=== PATIENT | female | born 1995 | race Two or more races ===

== ENCOUNTER 2020-04-30 10:19 | Emergency (ER) | payer MEDICAID ==
[~2020-04-30] VITALS: Ht 170.2 cm; Wt 77.1 kg
[2020-04-30 10:30] VITALS: BP 132/81
--- NOTE | 2020-04-30 10:30 | Emergency Room Report ---
History of Present Illness General Chief Complaint: Palpitations Source: Patient Present Illness HPI Patient is a 25-year-old female who presented after increased palpitations. She reports having rapid heartbeat. Had been vomiting yesterday. Denies any bilious or bloody vomit. Had 2 episodes of vomiting yesterday. Reports having normal menses which finished approximately 1 week ago. Reports having some increased vaginal discharge but denies any recent intercourse. States that she had previous cysts but denies any abdominal pain. Reports having some increased sore throat with some burning sensation to her upper chest. COVID-19 Screening Contact w/high risk pt: No Experienced COVID-19 symptoms?: No COVID-19 Testing performed MUD WORKER: No Patient History Past Medical History: see triage record Last Menstrual Period: 04/21/20 Now: No Reviewed Nursing Documentation: PMH: Agreed; PSxH: Agreed Nursing Documentation-PMH Past Medical History: No Stated History Review of Systems All Other Systems: negative except mentioned in HPI Physical Exam Vital Signs Date Time Temp Pulse Resp B/P (MAP) Pulse Ox O2 Delivery O2 Flow Rate FiO2 04/30/20 10:23 98.6 78 18 132/81 (98) 94 Room Air Sp02 EP Interpretation: reviewed, normal General Appearance: normal inspection, well appearing, no apparent distress, alert, GCS 15 Head: atraumatic ENT: normal ENT inspection, hearing grossly normal, normal voice Neck: normal inspection, full range of motion, supple, no bony tend Respiratory: normal inspection, lungs clear, normal breath sounds, no respiratory distress, no retraction, no wheezing Cardiovascular #1: regular rate, rhythm, no edema Gastrointestinal: normal inspection, normal bowel sounds, non tender, soft, no guarding, no hernia Genitourinary: no CVA tenderness Musculoskeletal: normal inspection, back normal, normal range of motion Neurologic: alert, responsive, speech normal, normal inspection Psychiatric: normal inspection, judgement/insight normal, mood/affect normal Medical Decision Making Diagnostic Impression: Primary Impression: Palpitation Additional Impression: Urinary tract infection ER Course Patient presented for palpitations. Differential diagnosis include was not limited to dehydration, gastritis, myocardial infarction, arrhythmia among others. Patient has a benign exam and does not appear to require any imaging or laboratory testing at this time. Patient was noted to have a normal heart rate.EKG interpreted by me showed normal sinus rhythm with a rate of [address] or T wave change. Patient does not have any known risk factor for myocardial ischemia. Recent vomiting suggest that she had some volume depletion. Patient was noted to have some evidence of urinary infection. test was negative. No risk factor for pulmonary embolism. Patient was noted to have normal heart rate and orthostatic vital signs were normal. Patient was advised to follow-up with primary care physician for cardiology referral and possible Holter testing. Patient appears to be stable for discharge. The patient is advised to follow up with primary care doctor in 1- 2 days. Patient is advised to return if any worsening condition or if any changes in status that are concerning. This report is dictated with [employer] apprentice lineman third step software which may occasionally lead to discrepancies related to use of this software. Labs Test 04/30/20 10:31 Urine Color Pale yellow Urine Appearance Slightly cloudy Urine pH 6 (4.5-8.0) Urine Specific [place] 1.010 (1.005-1.035) Urine Protein Negative (NEGATIVE) Urine Glucose (UA) Negative (NEGATIVE) Urine Ketones Negative (NEGATIVE) Urine Blood 4+ (NEGATIVE) Urine Nitrite Negative (NEGATIVE) Urine Bilirubin Negative (NEGATIVE) Urine Urobilinogen Normal MG/DL (0.0-1.0) Urine Leukocyte Esterase 2+ (NEGATIVE) Urine RBC 2-4 /HPF (0 - 2) Urine WBC 10-15 /HPF (0 - 2) Urine Squamous Epithelial Cells Moderate /LPF (NONE/OCC) Urine Bacteria Few /HPF (NONE) Urine HCG, Qualitative Negative (NEGATIVE) Urine Opiates Screen Negative (NEGATIVE) Urine Barbiturates Screen Negative (NEGATIVE) Phencyclidine (PCP) Screen Negative (NEGATIVE) Urine Amphetamines Screen Negative (NEGATIVE) Urine Benzodiazepines Screen Negative (NEGATIVE) Urine Cocaine Screen Negative (NEGATIVE) Urine Marijuana (THC) Screen Negative (NEGATIVE) EKG Diagnostic Results Rate: normal Rhythm: NSR ST Segments: no acute changes Last Vital Signs Date Time Temp Pulse Resp B/P (MAP) Pulse Ox O2 Delivery O2 Flow Rate FiO2 04/30/20 10:23 98.6 78 18 132/81 (98) 94 Room Air Status: improved Disposition: HOME, SELF-CARE Scripts Cephalexin* (KEFLEX*) 500 Mg Capsule 500 MG ORAL EVERY 6 HOURS, #28 CAP Prov: Omar Mackay MD 04/30/20 Omar Mackay MD Apr 30, 2020 10:30
[2020-04-30 10:47] LABS: APPEARANCE,URINE SLIGHTLY CLOUDY; BILIRUBIN, URINE NEGATIVE (NEGATIVE); COLOR,URINE PALE YELLOW; GLUCOSE, URINE (UA) NEGATIVE (NEGATIVE); KETONES,URINE NEGATIVE (NEGATIVE); LEUKOCYTE ESTERASE ,URINE 2+ (NEGATIVE); NITRITE,URINE NEGATIVE (NEGATIVE); PH,URINE 6 (4.5-8.0); PROTEIN,URINE NEGATIVE (NEGATIVE); UROBILINOGEN,URINE NORMAL MG/DL (0.0-1.0)
[2020-04-30 10:55] VITALS: BP_SYST 107; BP_SYST 109; BP_SYST 114; BP_DIAS 61; BP_DIAS 68; BP_DIAS 75
[2020-04-30] MEDS ORDERED: CEPHALEXIN500 MG ORAL (11:25)
[2020-04-30 11:33] VITALS: BP 112/78
== END 2020-04-30 11:33 | disposition home or self-care (01) ==
LOC: EMR 10:38
DX: R00.2 Palpitations (principal); N39.0 Urinary tract infection, site not specified
CPT/HCPCS: 80307; 81003; 81025; 87086; 93005; Z7502; 99283